=== PATIENT | male | born 1955 | race Caucasian/White ===

== ENCOUNTER 2020-10-24 10:47 | Day surgery (SDC) | payer MEDICARE, MEDICAID ==
[2020-10-19 16:39] LABS: BASOPHILS % (AUTO) 0.5 % (0-1); EOSINOPHILS # (AUTO) 0.4 X10'3 (0-0.9); EOSINOPHILS % (AUTO) 4.8 % (0-6); HEMATOCRIT 38.8 % (42.0-52.0); HEMOGLOBIN 13.1 g/dl (14.0-17.9); LYMPHOCYTES # (AUTO) 2.4 X10'3 (1.1-4.8); LYMPHOCYTES % (AUTO) 31.9 % (21-51); MEAN CORPUSCULAR HEMOGLOBIN 30.2 PG (27.0-31.0); MEAN CORPUSCULAR HGB CONC 33.8 g/dL (33.0-36.5); MEAN CORPUSCULAR VOLUME 89.5 FL (78-98); MEAN PLATELET VOLUME 7.8 FL (7.4-10.4); MONOCYTES # (AUTO) 0.8 X10'3 (0-0.9); MONOCYTES % (AUTO) 10.4 % (2-12); NEUTROPHILS # (AUTO) 3.9 X10'3 (1.8-7.7); NEUTROPHILS % (AUTO) 52.4 % (42-75); PLATELET COUNT 165 X10'3 (140-440); RED BLOOD COUNT 4.33 X10'6 (4.70-6.10); RED CELL DISTRIBUTION WIDTH 14.2 % (11.5-14.5); WHITE BLOOD COUNT 7.4 X10'3 (4.5-11.0)
[2020-10-19 16:56] LABS: ALBUMIN 3.8 G/DL (3.4-5.0); ANION GAP 8 (8-16); BLOOD UREA NITROGEN 21 MG/DL (7-18); BUN/CREATININE RATIO 15.3 (5.4-32.0); CALCIUM 9.4 MG/DL (8.5-10.1); CHLORIDE 107 MMOL/L (99-107); CREATININE 1.37 MG/DL (0.60-1.10); GLUCOSE 111 MG/DL (70-104); POTASSIUM 3.9 MMOL/L (3.5-5.1); SODIUM 142 MMOL/L (135-145); TOTAL CARBON DIOXIDE 27.3 MMOL/L (24-32); eGFR 52 ML/MIN
[2020-10-19 16:59] LABS: PARTIAL THROMBOPLASTIN TIME 28 SECONDS (22-32)
[~2020-10-24] VITALS: Ht 165.1 cm; Wt 98.8 kg
[2020-10-24] VITALS (11 sets, daily range): BP systolic 102–159; BP diastolic 61–96
[2020-10-24] MEDS ORDERED: diphenhydrAMINE 25mg capsule PO PRN (11:10)
[2020-10-24] MEDS ORDERED: normal saline 1,000 ML IV SCH (11:10)
[2020-10-24] MEDS ORDERED: LORazepam 0.5 MG tablet PO PRN (11:10)
[2020-10-24] MEDS ORDERED: midazolam 1 mg/ML 2ml injection ONE (11:49)
[2020-10-24] MEDS ORDERED: verapamil 2.5 mg/ml inj IV ONE (11:49)
[2020-10-24] MEDS ORDERED: fentaNYL/PF 50MCG/1 ML 2ML syringe ONE (11:49)
[2020-10-24] MEDS ORDERED: iohexol 350MG/ML 100ml bottle IV ONE (11:50)
[2020-10-24] MEDS ORDERED: LIDOcaine 1% (10mg/ml)w/preservative injection 20ml MDV ONE (11:50)
[2020-10-24] MEDS ORDERED: heparin 1,000unit/ml 10ml vial 10 ML ONE (11:50)
[2020-10-24] MEDS ORDERED: nitroGLYCERIN-Tridil 50MG/D5W 250 ML IV ONE (11:50)
[2020-10-24] MEDS ORDERED: PRAM0.5T12 PO (12:06)
[2020-10-24] MEDS ORDERED: LISI40TA13 PO (12:06)
[2020-10-24] MEDS ORDERED: GABA300T26 PO (12:06)
[2020-10-24] MEDS ORDERED: ASPI-611 PO (12:06)
[2020-10-24] MEDS ORDERED: METO25TA6 PO (12:06)
[2020-10-24] MEDS ORDERED: PER5325T PO (12:06)
[2020-10-24] MEDS ORDERED: CARB1TAB35 PO (12:06)
[2020-10-24] MEDS ORDERED: normal saline 1000ml 1,000 ML IV SCH (14:00)
[2020-10-24] MEDS ORDERED: OXAZEpam 15mg capsule PO PRN (14:00)
[2020-10-24] MEDS ORDERED: proCHLORperazine 10 MG/2 ml inj IV PRN (14:00)
[2020-10-24] MEDS ORDERED: ondansetron/PF 4mg/2ml inj IV PRN (14:00)
== END 2020-10-24 16:00 | disposition home or self-care (01) ==
LOC: SSTAY O 10:47
PROVIDERS: ATTEND Internal Medicine Interventional Cardiology
DX: R94.39 Abnormal result of other cardiovascular function study (principal); I25.10 Atherosclerotic heart disease of native coronary artery without angina pectoris; I10 Essential (primary) hypertension; G20 Parkinson's disease; Z95.5 Presence of coronary angioplasty implant and graft; Z79.899 Other long term (current) drug therapy; Z79.82 Long term (current) use of aspirin; Z79.01 Long term (current) use of anticoagulants
CPT/HCPCS: 36415; 80048; 85025; 85610; 85730; 93005; 93458; 99152; C1769; C1894; J1644; J2001; J2250; J3010; J7030; Q9967; A4620; J3490